=== PATIENT | male | born 1960 | race Caucasian/White ===

== ENCOUNTER → 2017-12-08 | Outpatient (REF) ==
[~2017-12-08] MED LIST: ALLO100T70 PO; ATEN-65 PO; BP MED; CHLOR25; LOSA50TA72 PO; VERA180T53
== END ==
LOC: AUD 10:00
PROVIDERS: ATTEND Family Medicine
DX: Z01.10 Encounter for examination of ears and hearing without abnormal findings (principal)
CPT/HCPCS: 92552

== ENCOUNTER → 2018-08-23 | Outpatient (CLI) | payer BC ==
[~2018-08-23] MED LIST changes: -LOSA50TA72 PO; +LOSA50TA80 PO
--- NOTE | 2018-08-23 18:01 | RADIOLOGY IMAGING REPORT ---
FACILITY: [facility] PATIENT NAME: Vernon Beasley : 1960 MR: [id number] V: [id number] EXAM DATE: ORDERING PHYSICIAN: BLANCA GARCIA TECHNOLOGIST: [place] [facility] [place] Patient: Vernon Beasley : 1960 Visit/Account:[id number] Date of Sevice: 08/23/2018 TESTICULAR HISTORY: Swollen right testicle x1 year, no pain no injury COMPARISON: None. FINDINGS: Testes: Right testicle measures 5 x 2.2 x 3.2 cm. The left testicle measures 4.1 x 2.5 x 2.9 cm. Sy mmetric and unremarkable blood flow documented by color and Duplex Doppler ultrasound. Epididymides: The head the epididymis on the right measures 1.6 x 0.6 x 1.2 cm the head epididymis on the left measures 9 x 8 x 7 mm. There is a 3 mm cyst head of the epididymis on the left Blood flow is unremarkable in each epididymis by color Doppler ultrasound. Hydrocele: Large right hydrocele with floating debris Small left hydrocele Varicocele: None. IMPRESSION: There is a large right hydrocele with floating debris and a small left hydrocele 3 mm cyst had epididymis on the left Report Dictated By: Monica Robert MD at 08/23/2018 5:56 PM Report E-Signed By: Moncia Robert MD at 08/23/2018 5:58 PM WSN:[id number]
== END ==
LOC: US 04:59
PROVIDERS: ATTEND Family Medicine
DX: N43.3 Hydrocele, unspecified (principal); N50.3 Cyst of epididymis
CPT/HCPCS: 76870

== ENCOUNTER → 2018-12-09 | Outpatient (REF) ==
[~2018-12-09] MED LIST changes: -VERA180T53; +VERA180T57
== END ==
LOC: AUD 13:15
PROVIDERS: ATTEND Family Medicine
DX: Z01.12 Encounter for hearing conservation and treatment (principal)
CPT/HCPCS: 92552